=== PATIENT | female | born 1965 | race Two or more races ===

== ENCOUNTER 2018-11-07 16:36 | Emergency (ER) | payer BC ==
--- NOTE | 2018-11-07 18:49 | EDM.PDOC ---
ED HPI GENERAL MEDICAL PROBLEM - General Chief Complaint: Respiratory Problem Stated Complaint: COUGH Time Seen by Provider: 11/07/18 18:20 Source of Information: Reports: Patient History Limitations: Reports: Language Barrier (due to mosotho speaking. I spoke a bit of [place] and used an AMEYA for translation) - History of Present Illness INITIAL COMMENTS - FREE TEXT/NARRATIVE: 53 yo female present to ER for cough, sinus pressure, nasal congestion for the last 2 weeks worse the last 2-3 days. Patient works 12 hour shifts and has been very tired. She has used numerous OTC treatment to help with symptoms without improvement. Treatment tried include Lemon, Honey, Guaifenesin, saline rinses and rest without improvement. Numerous people at work are ill with similar symptoms. Patient has had chills and sweats without documented fever. No significant headache with symptoms. NO rashes or sore to skin noted. No diarrhea, constipation or urinary symptoms or concerns - Related Data Allergies Allergy/AdvReac Type Severity Reaction Status Date / Time No Known Allergies Allergy Verified 01/20/18 09:34 Home Meds: Home Meds Estrogens, Conjugated [Premarin Vaginal Crm] 0.5 appful VAG DAILY 01/19/18 [ History] Amoxicillin/Clavulanate K [Augmentin 875-125 MG] 1 tab PO BID 10 Days #20 tab [Rx] Codeine/guaiFENesin [guaiFENesin-Codeine Syrup] 10 ml PO Q6H PRN 5 Days #120 bottle 11/07/18 [Rx] guaiFENesin [Mucinex] 1 tab PO Q12HR 11/07/18 [History] Past Medical History HEENT History: Reports: Other (See Below) Other HEENT History: left ear hard of hearing. 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: Musculoskeletal History: Reports: Arthritis Neurological History: Reports: Headaches, Chronic Psychiatric History: Reports: Depression Hematologic History: Reports: Anemia - Infectious Disease History Infectious Disease History: Reports: Chicken Pox - Past Surgical History Head Surgeries/Procedures: Reports: None HEENT Surgical History: Reports: None GI Surgical History: Reports: Appendectomy, Cholecystectomy Female Surgical History: Reports: Section, Hysterectomy, Salpingo- Oophorectomy Neurological Surgical History: Reports: None Musculoskeletal Surgical History: Reports: None Social & Family History - Family History Family Medical History: Noncontributory - Tobacco Use Smoking Status *Q: Never Smoker - Caffeine Use Caffeine Use: Reports: Coffee - Recreational Drug Use Recreational Drug Use: No ED ROS GENERAL - Review of Systems Review Of Systems: ROS reveals no pertinent complaints other than HPI. (limited due to language and cultural barriers) ED EXAM, GENERAL - Physical Exam Exam: See Below Exam Limited By: Other (mosotho speaking) General Appearance: Alert, WD/WN, No Apparent Distress Eye Exam: Bilateral Eye: EOMI, PERRL Ears: Normal External Exam, Normal Canal, Hearing Grossly Normal. No: Normal TMs (Right effusion with dullness and erythema noted) Nose: Normal Inspection, Normal Mucosa, No Blood, Other (bilateral ethmoid and maxillary sinus tenderness noted) Throat/Mouth: Normal Inspection, Normal Lips, Normal Teeth, Normal Gums Head: Atraumatic, Normocephalic Neck: Normal Inspection, Supple, Non-Tender, Full Range of Motion. No: Lymphadenopathy (R), Lymphadenopathy (L) Respiratory/Chest: No Respiratory Distress, Lungs Clear, Normal Breath Sounds, No Accessory Muscle Use, Chest Non-Tender Cardiovascular: Normal Peripheral Pulses, Regular Rate, Rhythm, No Edema GI/Abdominal: Normal Bowel Sounds, Soft, Non-Tender Extremities: Normal Inspection, Normal Range of Motion, Non-Tender, Normal Capillary Refill, No Pedal Edema Neurological: Alert, Oriented, CN II-XII Intact, Normal Cognition, Normal Gait, Normal Reflexes, No Motor/Sensory Deficits Psychiatric: Normal Affect, Normal Mood Skin Exam: Warm, Dry, Intact, Normal Color, No Rash Course - Vital Signs Last Recorded V/S: Last Vital Signs Temp 36.1 C 11/07/18 17:39 Pulse 88 11/07/18 17:39 Resp 16 11/07/18 17:39 BP 146/90 H 11/07/18 17:39 Pulse Ox 97 11/07/18 17:39 Departure - Departure Time of Disposition: 18:43 Disposition: Home, Self-Care 01 Clinical Impression: Sinusitis, Otitis, Cough - Discharge Information Prescriptions: Amoxicillin/Clavulanate K [Augmentin 875-125 MG] 1 tab PO BID 10 Days #20 tab Codeine/guaiFENesin [guaiFENesin-Codeine Syrup] 10 ml PO Q6H PRN 5 Days #120 bottle PRN Reason: Cough Instructions: Sinusitis, Adult, Cough, Adult, Otitis Media, Adult Referrals: PCP,None [Primary Care Provider] - Forms: ED Department Discharge, ED Return to Work/School Form Additional Instructions: 1. Augmentin 875mg every am and pm x 10 days. 2. Robitussin AC every 6 hours as needed for cough. 3. Ibuprofen 600-800mg with food for pain, swelling and inflammation. 4. Call PCP of choice for recheck in 72 hours if not improving or unable to return to 8 hour work day this week. - Problem List & Annotations (1) Cough SNOMED Code(s): 53742920 Code(s): R05 - COUGH Status: Acute Current Visit: Yes (2) Otitis SNOMED Code(s): 31308351 Code(s): H66.90 - OTITIS MEDIA, UNSPECIFIED, UNSPECIFIED EAR Status: Acute Current Visit: Yes (3) Sinusitis SNOMED Code(s): 07907134 Code(s): J32.9 - CHRONIC SINUSITIS, UNSPECIFIED Status: Acute Current Visit: Yes
== END 2018-11-07 19:11 | disposition home or self-care (01) ==
LOC: JP.ED 16:36
DX: J32.9 Chronic sinusitis, unspecified (principal); H65.91 Unspecified nonsuppurative otitis media, right ear; M19.90 Unspecified osteoarthritis, unspecified site; Z79.899 Other long term (current) drug therapy
CPT/HCPCS: 99282